=== PATIENT | male | born 1940 | race Caucasian/White ===

== ENCOUNTER 2017-09-10 11:18 | Emergency (ER) | payer OTHER, MEDICARE ==
[~2017-09-10] VITALS: Ht 175.3 cm; Wt 90.7 kg
[~2017-09-10 11:18] MED LIST: AMARYL 2 MG2 MG PO; ANDRODERM4 MG/24 HR TOP; ASPIRIN CHILDRE81 MG PO; ATORVASTATIN CA40 MG PO; AZELASTINE137 MCG/0. NASB; CARTIA XT240 M1 PO; ELIQUIS5 M1 PO; GLIMEPIRIDE1 MG PO; JANUVIA100 M1 PO; MULTAQ 400MG400 MG PO; VASOTEC20 M1 PO; ZETIA10 M1 PO
--- NOTE | 2017-09-10 11:57 | ED CARDIAC/CP/PALPITATIONS ---
History of Present Illness General Chief Complaint: Palpitations Stated Complaint: HEARTS "RACING AND SKIPPING" Source: patient, family, old records Exam Limitations: no limitations Vital Signs & Intake/Output Vital Signs & Intake/Output Vital Signs Date Time Temp Pulse Resp B/P B/P Pulse O2 O2 Flow FiO2 Mean Ox Delivery Rate 09/10 1225 98.3 83 18 117/62 96 Room Air 09/10 1159 88 09/10 1136 98.0 44 22 130/72 97 Allergies Coded Allergies: NO KNOWN ALLERGIES (08/12/12) Reconcile Medications Apixaban (Eliquis) 5 MG TABLET 1 TAB PO BID BLOOD THINNER (Reported) Azelastine HCl 137 MCG (0.1 %) SPRAY.PUMP 2 SPRAY NASB BID ALLERGIES ( Reported) Diltiazem HCl (Cartia Xt) 240 MG CAP.ER.24H 1 CAP PO DAILY HEART (Reported) Dronedarone HCl (Multaq) 400 MG TABLET 1 TAB PO BID HEART (Reported) Enalapril Maleate (Vasotec) 20 MG TABLET 1 TAB PO DAILY HEART (Reported) Ezetimibe (Zetia) 10 MG TABLET 1 TAB PO DAILY CHOLESTEROL (Reported) Glimepiride (Amaryl) 1 MG TABLET 1 TAB PO BID DIABETES (Reported) Metoprolol Tartrate 25 MG TABLET 0.5 TAB PO BID HEART (Reported) Sitagliptin Phosphate (Januvia) 100 MG TABLET 1 TAB PO DAILY DIABETES ( Reported) Tamsulosin HCl 0.4 MG CAP.ER.24H 1 CAP PO DAILY PROSTATE (Reported) Triage Note: PER PT HX OF AFIB"BEEN IN IT SINCE SUNDAY" DENIES CP OR SOB NO ASSOC SYMPTOMS Triage Nurses Notes Reviewed? yes Onset: Abrupt Duration: day(s): (3), better, constant Timing: recent history Quality/Severity: mild Location: no pain Activities at Onset: none Nitro Today/Relief: no nitro taken today Associated Symptoms: denies HPI: 77-year-old male with history of A. fib on elliquis, VA stents 2 hypertension high cholesterol diabetes presents to the ER for evaluation stating he is in A. fib. Patient's history is significant in that he was cardioverted with ibuitilide last week by Dr. Rosenberg his spine supervisor area states over the weekend he was outside and felt himself go into the A. fib. He suddenly felt rundown and tired and lethargic. Those symptoms resolved. He has not had any chest pain shortness of breath. He denies any other complaints at this time he called his spine supervisor who advised him to come to the ER. He is otherwise without any complaints at this time (Cristian Leyva) Past History Travel History Traveled to [place] past 21 day No Medical History Any Pertinent Medical History? 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 FH: diabetes mellitus MOTHER ( from dementia in her 90's). BROTHER (prostate cancer). Hx Contributory? No (Cristian Leyva) Review of Systems Review of Systems Constitutional: Reports: see HPI. Comments Review of systems: See HPI, All other systems negative. Constitutional, no chills no fever, HEENT: no sore throat no congestion, no ear pain Cardiovascular: No chest pain , palpitation Skin: no rashes, no change in skin Respiratory: No dyspnea no cough no sputum GI: No nausea no vomiting, Muscle skeletal: No joint pain, no back pain, no neck pain, Neurologic: , no headache Heme/endocrine: No bruising (Cristian Leyva) Physical Exam Physical Exam General Appearance: well developed/nourished, alert, awake Cardiovascular: irregularly irregular Comments: Well-developed well-nourished person in no acute distress HEENT: Normal EENT exam; PERRL, EOMI, HEAD is atraumatic. moist mucous membranes. Neck: Supple, normal range of motion Back: Full range of motion Cardiovascular: Irregular rate and rhythm, (+) murmur, normal JVP Respiratory: Chest nontender.There were no bony deformities, no asymmetry. No respiratory distress. Patient speaking in full complete sentences. Breath sounds clear to auscultation bilaterally: NO W/R/R Abdomen: Soft, nontender Extremity: No edema, full range of motion of extremities Neuro: Alert oriented x3, motor sensory normal There were no obvious focal neurologic abnormalities. Skin: No appreciable rash on exposed skin, skin is warm and dry. Psych: Mood and affect is normal, memory and judgment is normal. Core Measures ACS in differential dx? Yes CVA/TIA Diagnosis No Sepsis Present: No Sepsis Focused Exam Completed? No (Rosa Elena BATRES,Cristian) Progress Differential Diagnosis: AMI, aortic dissection, atrial fibrillation, pneumonia, PSVT, unstable angina, V-fib/V-Tach Plan of Care: Orders Procedure Date/time Status Add-on Test (ER Only) 09/10 1213 Active PARTIAL THROMBOPLASTIN TIME 09/10 1152 Complete PROTHROMBIN TIME 09/10 1152 Complete THYROID STIMULATING HORMONE 09/10 1133 Complete TROPONIN LEVEL 09/10 1133 Complete MAGNESIUM 09/10 1133 Complete COMPREHENSIVE METABOLIC PANEL 09/10 1133 Complete CBC WITHOUT DIFFERENTIAL 09/10 1133 Complete EKG 09/10 1119 Active Laboratory Tests 09/10/17 1152: Anion Gap 11, Estimated GFR > 60, BUN/Creatinine Ratio 21.0, Glucose 233 H, Calcium 9.6, Magnesium 2.0, Total Bilirubin 0.5, AST 19, ALT 30, Alkaline Phosphatase 45, Troponin I < 0.01, Total Protein 6.8, Albumin 4.0, Globulin 2.8, Albumin/Globulin Ratio 1.4, TSH 1.730, PT 16.6 H, INR 1.52 H, APTT 35, CBC w Diff NO MAN DIFF REQ, RBC 4.88, MCV 96.5 H, MCH 32.0 H, MCHC 33.2, RDW 13.6, MPV 8.5, Gran % 73.8, Lymphocytes % 16.7 L, Monocytes % 7.7, Eosinophils % 1.3, Basophils % 0.5, Absolute Granulocytes 7.8 H, Absolute Lymphocytes 1.8, Absolute Monocytes 0.8 H, Absolute Eosinophils 0.1, Absolute Basophils 0.1 Patient resting in no acute distress discussed with Dr. Rosenberg who will come down to the emergency room to evaluate the patient. 1250 dr rosenberg in department to see patient after speaking with the patient patient's labs are unremarkable there's been no pain he S of the patient be discharged to his office upstairs to speak with Dr. Ambrocio regarding cardioversion patient is otherwise asymptomatic rate controlled at this time. Patient feels comfortable with plan case discussed with Dr. Cintron agrees with plan Initial ED EKG: normal axis (aflutter at 70, ), no ST T wave changes Prior EKG: changed Rhythm Strip: atrial flutter (Cristian Leyva) Departure Departure Time of Disposition: 1247 Disposition: HOME OR SELF CARE Condition: Stable Clinical Impression Primary Impression: Atrial flutter Referrals: Hilda CORTEZ,Morris Samayoa MD,Sourav (PCP/Family) Additional Instructions: Follow-up with Dr. ASHTON upstairs as discussed with dr rosenberg Departure Forms: Customer Survey General Discharge Information (Cristian Leyva) PA/AUTOMATIC BANDSAW TENDER Co-Sign Statement Statement: ED Attending supervision documentation- X] I saw and evaluated the patient. I have also reviewed all the pertinent lab results and diagnostic results. I agree with the findings and the plan of care as documented in the PA's/AUTOMATIC BANDSAW TENDER's documentation. Patient presents for evaluation of an episode of atrial fibrillation. Physical examination reveals an irregular rapid heart rate and clear lungs. [] I have reviewed the ED Record and agree with the PA's/AUTOMATIC BANDSAW TENDER's documentation. [] Additions or exceptions (if any) to the PAs/AUTOMATIC BANDSAW TENDER's note and plan are summarized below: [] (Saida CORTEZ,Ted Rodriguez) Critical Care Note Critical Care Note Critical Care Time: non-applicable (Cristian Leyva)
[2017-09-10 11:59] LABS: ABSOLUTE BASOPHIL COUNT 0.1 /CUMM (0.0-0.2); ABSOLUTE EOSINOPHIL COUNT 0.1 /CUMM (0.0-0.7); ABSOLUTE GRANULOCYTE CT 7.8 /CUMM (1.4-6.5); ABSOLUTE LYMPH COUNT 1.8 /CUMM (1.2-3.4); ABSOLUTE MONOCYTE COUNT 0.8 /CUMM (0.10-0.60); BASOPHIL % 0.5 % (0.0-2.0); EOSINOPHIL % 1.3 % (0-5); GRANULOCYTE % 73.8 % (42.2-75.2); MEAN CORPUSCULAR HGB CONC 33.2 G/DL (33.0-37.0); MEAN CORPUSCULAR VOLUME 96.5 FL (80.0-94.0); MEAN PLATELET VOLUME 8.5 FL (7.4-10.4); PLATELET COUNT 224 /CUMM (130-400); RBC DISTRIBUTION WIDTH 13.6 % (11.5-14.5); RED BLOOD CELL CT 4.88 /CUMM (4.70-6.10); WHITE BLOOD CELL COUNT 10.6 /CUMM (4.8-10.8)
[2017-09-10] MEDS ORDERED: METOPROLOL TART25 M1 PO (12:09)
[2017-09-10] MEDS ORDERED: TAMSULOSIN HCL0.4 M1 PO (12:10)
[2017-09-10] MEDS ORDERED: MULTAQ400 M1 PO (12:12)
[2017-09-10] MEDS ORDERED: AMARYL1 M1 PO (12:16)
[2017-09-10 12:25] VITALS: BP 117/62
[2017-09-10 13:08] LABS: PT 16.6 SEC (9.4-12.5); PTT 35 SEC (25-37)
--- NOTE | 2017-09-10 13:16 | Cons- Cardiology ---
General Information and HPI Consulting Request Date of Consult: 09/10/17 Requested By: er History of Present Illness: Mr. Valdez carries a history of hypertension, dyslipidemia, and diabetes mellitus. He initially presented to the [facility] with complaints of rapid irregular palpitations which were the result of atrial fibrillation. He subsequently was started on Eliquis for stroke prophylaxis and converted to NSR. Subsequently, this patient noted the sudden onset of rapid palpitations associated with lightheadedness and shortness of breath. The following day he also had some chest tightness with positive cardiac enzymes consistent with NSTEMI. He was converted into a NSR with ibutilide and therafter underwent cardiac catheterization to assess his myocardial ischemia. He was found to have a 75% AV groove LCX lesion with a 50% ostial stenosis of the OM1. He received a 2.75 x 12 mm Resolute stent in the AV groove LCX. A second 2.75 x 8mm Resolute stent was placed in the ostium of the OM1. The left main was patent, the LAD had luminal irregularities and the RCA was dominant with mild diffuse luminal irregularities. His EF was 80%. He had temporarily stopped his Multaq prior to the procedure and did have a transient bout of recurrent atrial fibrillation with increased heart rate. Over the past couple days this patient has noted a worn out feeling and shortness of breath beyond baseline. In the ER he is noted to be in atrial flutter with mildly increased heart rate. Otherwise he is doing well without any recurrent chest pain, pressure of tightness. He also denies having any lightheadedness but will occasionally feel dizzy if he arises quickly form a sitting or supine position. He also has some recurrent palpitations. We evaluated these palpitations via a Holter monitor that showed 1,457 supraventricular beats and 6 PVC's. He had no symptoms related to this ectopy. He previously complained of fatigue so I decreased his metoprolol to 25mg daily and this fatigue has resolved. Finally, the patient complained of achiness and so I temporarily discontinued his statin with a complete resolution of this symptom. He is now back on this medication at a small dose due to his severe dyslipidemia. He has not noted palpitations in months. There is some concern about taking Aleve or NSAIDs for his arthritic pains while on Eliquis. He has not yet completed a year of therapy on Plavix. In should be recalled that a couple visits ago Zachary was bradycardic with lightheadedness so I decreased his cardizem which has helped. The combination of cardizem and Multaq may have raised the concentration of both causing bradycardia. At baseline this is a moderately active individual. Zachary initially presented to the [facility] on August 12, with complaints of rapid irregular palpitations that had begun the night prior. He had not had any similar palpitations in the past, and these palpitations were not associated with any lightheadedness, shortness of breath, or chest discomfort. He had atrial flutter with 2:1 block. The patient spontaneously converted to normal sinus rhythm, and he was treated for his hypertensive excursion, which was also noted, by the addition of Cardizem and Enalapril to his drug regimen. Workup did include an echocardiogram, which showed normal left ventricular size, with mild left ventricular hypertrophy. His EF was normal at greater than 65%. The left atrium was normal in size. In terms of cardiac valves, there was moderate mitral annular calcification, with trace mitral regurgitation, mild tricuspid regurgitation, and mild to moderate aortic stenosis. This patient was noted to have significant dyslipidemia with a direct LDL of 120 , an HDL of 35, and triglycerides of 660. Allergies/Medications Allergies: Coded Allergies: NO KNOWN ALLERGIES (08/12/12) Home Med List: Apixaban (Eliquis) 5 MG TABLET 1 TAB PO BID BLOOD THINNER (Reported) Azelastine HCl 137 MCG (0.1 %) SPRAY.PUMP 2 SPRAY NASB BID ALLERGIES ( Reported) Diltiazem HCl (Cartia Xt) 240 MG CAP.ER.24H 1 CAP PO DAILY HEART (Reported) Dronedarone HCl (Multaq) 400 MG TABLET 1 TAB PO BID HEART (Reported) Enalapril Maleate (Vasotec) 20 MG TABLET 1 TAB PO DAILY HEART (Reported) Ezetimibe (Zetia) 10 MG TABLET 1 TAB PO DAILY CHOLESTEROL (Reported) Glimepiride (Amaryl) 1 MG TABLET 1 TAB PO BID DIABETES (Reported) Metoprolol Tartrate 25 MG TABLET 0.5 TAB PO BID HEART (Reported) Sitagliptin Phosphate (Januvia) 100 MG TABLET 1 TAB PO DAILY DIABETES ( Reported) Tamsulosin HCl 0.4 MG CAP.ER.24H 1 CAP PO DAILY PROSTATE (Reported) Review of Systems Review of Systems: A 12 point review of systems is unremarkable Past History Travel History Traveled to [place] past 21 day No Medical History Neurological: NONE EENT: NONE Cardiovascular: AFIB, aflutter, aortic stenosis, hypertension, hyperlipidemia Respiratory: NONE Gastrointestinal: NONE Hepatic: NONE Renal: NONE Musculoskeletal: osteoarthritis Psychiatric: NONE Endocrine: diabetes Blood Disorders: NONE 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 FH: diabetes mellitus MOTHER ( from dementia in her 90's). BROTHER (prostate cancer). Exam & Diagnostic Data Vital Signs and I&O Vital Signs Date Time Temp Pulse Resp B/P B/P Pulse O2 O2 Flow FiO2 Mean Ox Delivery Rate 09/10 1225 98.3 83 18 117/62 96 Room Air 09/10 1159 88 09/10 1136 98.0 44 22 130/72 97 Intake & Output 09/10 1600 09/10 0800 09/10 0000 09/09 1600 09/09 0800 09/09 0000 Intake Total Output Total Balance Patient 200 lb Weight Physical Exam: General: WD/WN male in NAD; alert and oriented x 3 HEENT: NC/AT, PERRL, EOMI Neck: no JVD, no carotid bruit Heart: irregularly irregular with 2/6 systolic murmur at the apex, LLSB and RUSB Lungs: clear bilaterally Abdomen: soft, NT, +ve bowel sounds Extremities: no edema Assessment/Plan Assessment/Plan * Atrial fibrillation. Zachary has had atrial flutter with controlled heart rate on his current drug regimen and has had atrial fibrillation in the past as well. He is currently in atrial flutter despite being on Multaq 400mg BID. He is also on metoprolol and cardizem for rate control. We backed off on the cardizem to 240mg daily due to bradycardia and lightheadedness and this has helped. The patient does not like being in this abnormal heart rhythm. He can tell when he is in it and, in addition to the psychological effects he also feels very tired. In consideration of his valvular heart disease I think a cardioversion will not give lasting results. I asked him to talk with Dr. Stevens about an A. Fib/A. Flutter ablation. No changes to medications for now. I am reluctant to begin Amiodarone because I suspect he would need this medication for a long period of time and there is the risk of side effects with chronic use. Continue Eliquis 5mg BID since he still has intermittent palpitations. * Hypertension. Zachary is typically hypertensive but today is well controlled on his current drug regimen. At baseline this patient is typically hypertensive although he is somewhat resistant to the reality of this since he has had normotensive BP measurements elsewhere. He does have LVH but this may also be related to his aortic stenosis. He is occasionally lightheaded and had to separate the administration of vasotec from diltiazem. * CAD. This patient is doing well following PCI of his LCX. He did have some atypical discomfort but it has resolved and I am not convinced that it was cardiac. We have stopped Plavix. * Dyslipidemia. The patient had very high triglycerides on last visit. He said it was after eating a pizza. He also was not taking his Zetia. His most recent lipid profile is excellent with an LDL of 82. His triglycerides which were greater than 600 have come down to 185 and his HDL is 40. Unfortunately this patient had bad muscle cramps that resolved when Lipitor was stopped. I restarted this medication but at the much lower dose of 10mg daily which he is tolerating. He continues on Zetia as well as fish oil. We will recheck a lipid profile on next visit Consult Acknowledgment - Thank you for your consult request.
== END 2017-09-10 12:49 ==
LOC: ERH 11:18
PROVIDERS: Physician Assistant Medical
DX: I48.92 Unspecified atrial flutter (principal); I10 Essential (primary) hypertension
CPT/HCPCS: 93005; 93010